=== PATIENT | male | born 1995 | race Caucasian/White ===

== ENCOUNTER 2016-06-15 16:00 | Inpatient (IN) | payer BC, OTHER ==
--- NOTE | ~2016-06-15 | HP ---
Unit #: [id number] #: [id number] Patient: FRANKLIN ADAM [id number] [place] [address] [id number] MR#: [id number] NAME: FRANKLIN ADAM. ROOM: P131 Age: 21 Sex: M Admission Date: 06/15/2016 : 1995 Attending Physician: Carmelo Gonzáles M.D. Admitting Physician: Carmelo Gonzáles M.D. Primary Care Physician: Generic Doctor Not In System HISTORY AND PHYSICAL HISTORY OF PRESENT ILLNESS Franklin is a 21-year-old male admitted on 06/15/[address] [place] [address] for psychosis. PAST MEDICAL HISTORY Concussion that he sustained last week after he tripped. PAST SURGICAL HISTORY [place] tooth removal. SOCIAL HISTORY No tobacco or illegal drug use, occasional alcohol use. 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 FAMILY HISTORY Noncontributory. REVIEW OF SYSTEMS CONSTITUTIONAL: No fever or chills. HEENT: Denies any sore throat, ear pain or runny nose. CARDIOVASCULAR: Denies chest pain, irregular heart rhythm or palpitations. CHEST: Denies shortness of breath or cough. No hemoptysis. GASTROINTESTINAL: Denies nausea, vomiting, diarrhea or chronic constipation. ENDOCRINE: Denies history of increased thirst or urination. No recent significant weight loss or gain. GENITOURINARY: Denies dysuria, frequency, or hematuria. SKIN: Denies any rashes. HEMATOLOGIC: Denies history of increased bleeding or bruising. MUSCULOSKELETAL: Denies any hot, swollen joints. No generalized muscle pain. NEUROLOGIC: Denies problems with vision or speech. No frequent, severe headaches. No numbness, tingling or weakness in any extremities. Denies loss of bladder or bowel control. CURRENT MEDICATIONS None. ALLERGIES None. PHYSICAL EXAMINATION GENERAL: Alert, oriented, no acute distress. Unit #: [id number] #: [id number] Patient: FRANKLIN ADAM VITAL SIGNS: Blood pressure 147/91, heart rate 78, respirations 18. HEIGHT: 6 feet 3. WEIGHT: 180 pounds. SKIN: Warm, dry. No rashes or lesions, track spicer, cuts, etc. HEENT: Normocephalic. TMs not viewed. Oronasal passages clear. Conjunctivae clear. PERRLA. EOM is intact. NECK: No lymphadenopathy or thyromegaly. HEART: Regular rate and rhythm. No murmur, gallop, or rub. LUNGS: Clear to auscultation bilaterally. ABDOMEN: Soft, nontender without palpable masses or hepatosplenomegaly. : Not assessed. EXTREMITIES: No evidence of cyanosis, clubbing, or edema. Moves all extremities independently without obvious deficit. NEUROLOGICAL: Grossly within normal limits. Cranial Nerves: II: Visual falcon are intact. III, IV AND : Extraocular movements are intact. Pupils are equal, round and reactive to light. V: Facial sensation is grossly normal. VII: Facial movements and expression are normal. VIII: Auditory acuity grossly intact. IX, X: Uvula is midline. Phonation is normal. XI: Patient shrugs shoulders and turns head normally. XII: Tongue protrudes in the midline. Sensory and Motor Function: Sensory and motor sensation is grossly normal. Motor: moves all extremities well. Coordination: Gait is normal. Deep Tendon Reflexes: Intact. IMPRESSION 1. Psychiatric admission. 2. Concussion sustained last week. RECOMMENDATIONS PSYCHIATRIC: Per psychiatrist. MEDICAL: No contraindication to participate in this facility's activities. MEDICAL PROGNOSIS Good. MEDICAL CONDITION Stable. Dictated by... Shania Foreman/jeffrey TD: 06/17/2016 07:52 JOB #: [id number] Unit #: [id number] #: [id number] Patient: FRANKLIN ADAM HISTORY AND PHYSICAL Page 1 of 1 X LEXUS GUERRERO APRN HISTORY AND PHYSICAL
--- NOTE | ~2016-06-15 | DS ---
Unit #: [id number] #: [id number] Patient: FRANKLIN ADAM [id number] [facility] [address] [place] [address] [id number] MR#: [id number] NAME: FRANKLIN ADAM. ROOM: P131 Age: 21 Sex: M Admission Date: 06/15/2016 : 1995 Discharge Date: 06/20/2016 Attending Physician: Carmelo Gonzáles M.D. 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 He has no history of this behavior prior to recent events. He has indulged in some drug use, but his toxicology screen was negative. He was medically evaluated at [facility], and returned to [facility] for treatment. DIAGNOSTIC STUDIES LABORATORY RESULTS: Please see [facility] records. HOSPITAL COURSE The patient was admitted and placed on Zyprexa 10 mg at bedtime. He tolerated this medication well with some sedation. His florid psychosis in terms of grandiosity and rambling speech rapidly improved, although he continued to have some paranoia and mistrustfulness. His insight is superficial and he is refusing to allow us to involve his family in his care to any great extent. I did speak with his mother and explained the clinical situation, respecting the patient's privacy while giving her as much information as I could. On the date of discharge, he contracted for safety against harm, although he continued to be somewhat paranoid. However, he did not meet criteria for involuntary hospitalization under [place] statutes and he was released to outpatient care. DISCHARGE DIAGNOSES AXIS I: Psychotic disorder, not otherwise specified. Rule out bipolar disorder versus schizophreniform disorder, based on history. AXIS II: No diagnosis. AXIS III: None. AXIS IV: AXIS V: DISCHARGE INSTRUCTIONS Follow up with [facility] in [place], [place]. DISCHARGE MEDICATIONS Zyprexa 10 mg at bedtime for psychosis. CONDITION AT DISCHARGE Fair. Unit #: [id number] #: [id number] Patient: FRANKLIN ADAM ANA CRISTINA Fair. DIET AND ACTIVITY Ad jesus. Dictated by... Hortensia Astorga/mary jo TD: 06/21/2016 02:47 JOB #: [id number] DISCHARGE SUMMARY Page 1 of 1 X Carmelo Gonzáles MD DISCHARGE SUMMARY
--- NOTE | ~2016-06-15 | PN ---
Unit #: [id number] #: [id number] Patient: MABEL ADAM [id number] [facility] [address] [place] [address] [id number] MR#: [id number] NAME: MABEL ADAM. ROOM: P131 Age: 21 Sex: M Admission Date: 06/15/2016 : 1995 Attending Physician: Carmelo Gonzáles M.D. Admitting Physician: Carmelo Gonzáles M.D. Primary Care Physician: Generic Doctor Not In System [facility] PROGRESS NOTES DATE 06/20/2015 DISCUSSION Mr. Adam is up and around on the unit today. He is slightly better in appearance and is calmer. His speech is less rapid and irritable mood. He is alert and oriented person, location but still has memory deficits prior to coming to the hospital per his report. His thought processes are less rambling and psychotic although he does still appear to be paranoid. His grandiosity has resolved. ASSESSMENT Psychotic disorder NOS. Rule out bipolar disorder. PLAN We will continue current medications, and discharged the patient when his 72-hour hold comes to an end. Dictated by... Hortensia Astorga/shauna TD: 06/21/2016 02:14 JOB #: [id number] [facility] PROGRESS NOTES Page 1 of 1 X Carmelo Gonzáles MD PROGRESS NOTE
--- NOTE | ~2016-06-15 | PA ---
Unit #: [id number] #: [id number] Patient: MABEL ADAM [id number] [place] [address] [id number] I MR#: [id number] NAME: MABEL ADAM. ROOM: P131 Age: 21 Sex: M Admission Date: 06/15/2016 : 1995 Date of Assessment: Attending Physician: Carmelo Gonzáles M.D. Admitting Physician: Carmelo Gonzáles M.D. Primary Care Physician: Generic Doctor Not In System PSYCHIATRIC ASSESSMENT DATE OF ASSESSMENT 06/16/2016. INFORMANTS The patient, partially reliable; [place], reliable; the patient's family, reliable. CHIEF COMPLAINT Psychosis. HISTORY OF PRESENT ILLNESS Mr. Adam is a 21-year-old man who has been decompensating for several months according to his family. His customer care team coach at [employer] reported that he appeared to be paranoid and responding to internal stimuli. In the emergency room, he was extremely grandiose and hypersexual in an appropriate fashion. He had recently been given a medication, but had apparently not yet started on it. He was placed on a 72-hour hold and transferred to [facility]. PAST PSYCHIATRIC HISTORY The patient has recently been seen at [facility], but has apparently not started on medications and would not reveal the nature of his medication. FAMILY PSYCHIATRIC HISTORY The patient and family deny history of mental illness or substance abuse. SOCIAL HISTORY The patient is a single heterosexual man who is currently a student at a local university. He has been staying with a friend and has been refusing to stay with family. He has been aggressive in his friend's apartment and may not be able to return there. PAST MEDICAL HISTORY No chronic medical problems. MEDICATIONS None currently. ALLERGIES No known medication allergies. SUBSTANCE USE HISTORY Unit #: [id number] #: [id number] Patient: MABEL ADAM The patient and family deny history of chemical abuse or dependence. His toxicology screen from [facility] was negative, although mother did report a history of using marijuana and alcohol with occasional cocaine. MENTAL STATUS EXAMINATION The patient presented as a disheveled man who appeared his stated age. He was quiet, but cooperative with the examination. Musculoskeletal examination demonstrated mild psychomotor agitation. His mood was irritable with decreased range of affect. He was alert and oriented to person and location. Memory and concentration were only fair. Thought processes were rambling with delusional and grandiose believes. Hypersexuality was also noted. He denied suicidal or homicidal ideation. Insight and judgment, poor. Fund of knowledge and abstraction, fair. ASSETS AND LIABILITIES The patient has supportive family and medical insurance. Liabilities include recent change in mental status and minimal insight. ADMITTING DIAGNOSES AXIS I: Psychotic disorder, not otherwise specified; rule out bipolar disorder, manic versus schizophrenia, first episode. AXIS II: No diagnosis. AXIS III: None. AXIS IV: AXIS V: PSYCHIATRIC PLAN The patient was admitted and placed on psychosis precautions. Zyprexa 10 mg at bedtime will be initiated for treatment of psychosis. He will enroll in psychotherapy groups and activities, and physical examination and laboratory studies will be ordered and reviewed as indicated. TREATMENT GOALS Improvement in psychosis, improvement in insight, and improvement in coping skills. DISCHARGE PLANNING Follow up with [facility] in [place]. ESTIMATED LENGTH OF STAY 5 days. Dictated by... Carmelo Gonzáles M.D. ADEN/mary jo TD: 06/21/2016 04:12 JOB #: [id number] Unit #: [id number] #: [id number] Patient: KIAMABEL Garcia PSYCHIATRIC ASSESSMENT Page 1 of 1 X Carmelo Gonzáles MD PSYCHIATRIC ASSESSMENT
--- NOTE | ~2016-06-15 | PN ---
Unit #: [id number] #: [id number] Patient: MABEL ADAM [id number] [facility] [address] [place] [address] [id number] I MR#: [id number] NAME: MABEL ADAM. ROOM: P131 Age: 21 Sex: M Admission Date: 06/15/2016 : 1995 Attending Physician: Carmelo Gonzáles M.D. Admitting Physician: Carmelo Gonzáles M.D. Primary Care Physician: Generic Doctor Not In System [facility] PROGRESS NOTES DATE OF SERVICE 06/17/2016 DISCUSSION Mr. Adam is sleeping better but is difficult to awaken for interview this morning. Staff reports he has been not aggressive although occasionally pacing in the milieu. He appears only minimally improved from admission. ASSESSMENT Psychosis NOS. PLAN Continue Zyprexa 10 mg at bedtime Dictated by... Hortensia Astorga/shauna TD: 06/21/2016 02:11 JOB #: [id number] [facility] PROGRESS NOTES Page 1 of 1 X Carmelo Gonzáles MD PROGRESS NOTE
--- NOTE | ~2016-06-15 | PN ---
Unit #: [id number] #: [id number] Patient: MABEL ADAM [id number] [facility] [address] [place] [address] [id number] MR#: [id number] NAME: MABEL ADAM. ROOM: P131 Age: 21 Sex: M Admission Date: 06/15/2016 : 1995 Attending Physician: Carmelo Gonzáles M.D. Admitting Physician: Carmelo Gonzáles M.D. Primary Care Physician: Generic Doctor Not In System [facility] PROGRESS NOTES DATE 06/18/2016 DISCUSSION Mr. Adam continues to be compliant with medications. His speech is sparse this morning and he continues to believe that he had a "concussion" although there is no evidence of head injury. He is alert, oriented to person and location only. Memory and concentration are impaired and his thought processes remain psychotic. ASSESSMENT Psychosis NOS. Rule out bipolar mixed versus schizophreniform disorder. PLAN Continue current treatment plan Dictated by... Hortensia Astorga/shauna TD: 06/21/2016 02:13 JOB #: [id number] [facility] PROGRESS NOTES Page 1 of 1 X Carmelo Gonzáles MD X PROGRESS NOTE
== END 2016-06-20 16:37 | disposition home or self-care (01) | DRG 885 ==
LOC: P1S 21:22
DX: F29 Unspecified psychosis not due to a substance or known physiological condition (principal)